=== PATIENT | male | born 1950 | race Caucasian/White ===

== ENCOUNTER 2017-02-22 15:46 | Emergency (ER) | payer BC, MEDICARE ==
--- NOTE | ~2017-02-22 | US85 ---
[facility] A Service [facility] RADIOLOGY TEXT RESULTS PATIENT: MEENA GUIDRY LOCATION: SED : 49 UNIT #: [id number] AGE: [address]: Joslyn Santiago MD SEX: M ORDER DR: [id number] [place] [id number] E MR#: [id number] Acc #: [id number] NAME: MEENA GUIDRY : 1950 SEX: M STUDY DATE/TIME: 02/22/2017 15:59 UNIT: SED ROOM: STUDY DESCRIPTION: [facility] or [facility] Attending Physician: Joslyn Santiago M.D. Referring Physician: Luis Yoon M.D. Ordering Physician: Joslyn Santiago M.D. Primary Care Physician: Luis Yoon M.D. MEDICAL IMAGING REPORT This report is preliminary unless electronic signature is present. EXAM Right lower extremity venous duplex 02/22/2017 HISTORY Right lower extremity pain, swelling and heat for 2 weeks. Evaluate for deep vein thrombosis. TECHNIQUE Venous ultrasound examination of the right lower extremity was performed using grayscale, spectral Doppler and color flow Doppler imaging. FINDINGS The examination is negative. There is no evidence of right lower extremity deep venous thrombus from the groin to the lower calf. Visualized greater saphenous vein is also patent. IMPRESSION Negative examination. No evidence of right lower extremity deep venous thrombosis. Dictated by... Cheko Garay M.D. THIS IS AN ELECTRONICALLY VERIFIED REPORT Cheko Garay M.D. at 02/23/2017 2:11 PM KRT/holly TD: 02/22/2017 20:50 JOB #: [id number] [facility] A Service [facility] RADIOLOGY TEXT RESULTS PATIENT: MEENA GUIDRY LOCATION: SED : 49 UNIT #: [id number] AGE: [address]: Joslyn Santiago MD SEX: M ORDER DR: MEDICAL IMAGING REPORT Page 1 of 1
[2017-02-22 15:45] LABS: BASOPHIL# 0.2 X10e3 (0-0.3); BASOPHIL% 1.8 % (0-2.5); EOSINOPHIL# 0.3 X10e3 (0-0.7); EOSINOPHIL% 2.3 % (0.0-7.0); HEMATOCRIT 41.2 % (38.0-50.0); HEMOGLOBIN 13.7 gm/dL (13.0-16.0); LYMPHOCYTE# 2.6 X10e3 (1.0-3.5); LYMPHOCYTE% 21.5 % (17.0-45.0); MEAN CELL VOLUME 87.2 FL (83-96); MEAN CORPUSCULAR HEMOGLOBIN 28.9 PG (28-34); MEAN CORPUSCULAR HGB CONC 33.1 g/dL (30-36); MEAN PLATELET VOLUME 8.1 FL (6.5-11.5); MONOCYTE% 8.4 % (3.0-12.0); PLATELET COUNT 144 X10e3 (140-420); RED BLOOD COUNT 4.73 X10e (3.90-5.60); RED CELL DISTRIBUTION WIDTH 13.8 % (11.0-15.5); WHITE BLOOD COUNT 12.1 X10e3 (4.0-10.5)
[~2017-02-22 15:46] MED LIST: DYRENIUM50 MG PO; LOVASTATIN20 M1 PO; PERCOCET5/325 PO; PROTONIX PO; THIAMINE HCL100 M1 PO; TRIAMTERENE-HC1 EAC1 PO; TRIAMTERENE/HCTZ; VITAMIN E400 UNI4 PO; VOLTAREN75 MG PO
[2017-02-22 15:58] LABS: DIFF IND NO
[2017-02-22 16:00] LABS: INR 1.3; PROTHROMBIN TIME (PATIENT) 14.2 SECONDS (9.5-12.4)
[2017-02-22 16:08] LABS: ALBUMIN SERUM 3.5 g/dL (3.5-5.0); BILIRUBIN, DIRECT 0.2 mg/dL (0.0-0.2); BILIRUBIN,INDIRECT 0.3 mg/dL (0.0-0.9); BILIRUBIN,TOTAL 0.5 mg/dL (0.2-2.0); BUN/CREATININE RATIO 11.25; CALCIUM SERUM 8.9 mg/dL (8.4-10.2); CREATININE SERUM 0.8 mg/dL (0.6-1.4); GLOM FILT RATE Estimated 92.5 mL/min (>60); PARTIAL THROMBOPLASTIN TIME 30.5 SECONDS (25.6-38.1); POTASSIUM 3.5 mmol/L (3.5-5.1); PROTEIN TOTAL SERUM 7.5 g/dL (6.0-8.3)
== END 2017-02-22 16:54 | disposition home or self-care (01) ==
LOC: SED 15:46
PROVIDERS: Emergency Medicine
DX: L03.115 Cellulitis of right lower limb (principal); I10 Essential (primary) hypertension; E78.00 Pure hypercholesterolemia, unspecified; M19.90 Unspecified osteoarthritis, unspecified site; Z98.890 Other specified postprocedural states
CPT/HCPCS: 36415; 80048; 80076; 85025; 85610; 85730; 93971; 99284

== ENCOUNTER 2017-03-23 08:55 | Emergency (ER) | payer OTHER, BC | END 2017-03-23 09:00 | disposition home or self-care (01) | LOC: SED 08:55 | DX: Z03.89 Encounter for observation for other suspected diseases and conditions ruled out (principal); E78.5 Hyperlipidemia, unspecified | CPT/HCPCS: 99282 ==

== ENCOUNTER → 2017-03-27 | Outpatient (CLI) | payer OTHER ==
--- NOTE | ~2017-03-27 | US85 ---
[facility] A Service [facility] RADIOLOGY TEXT RESULTS PATIENT: MEENA GUIDRY LOCATION: SNIV : 48 UNIT #: [id number] AGE: [address]: Luis Yoon MD SEX: M ORDER DR: [id number] [address] [id number] O MR#: [id number] Acc #: [id number] NAME: MEENA GUIDRY : 1950 SEX: M STUDY DATE/TIME: 03/27/2017 13:31 UNIT: SNIV ROOM: STUDY DESCRIPTION: [facility] or [facility] Attending Physician: Luis Yoon M.D. Referring Physician: Luis Yoon M.D. Ordering Physician: Luis Yoon M.D. Primary Care Physician: Luis Yoon M.D. MEDICAL IMAGING REPORT This report is preliminary unless electronic signature is present. EXAM Right lower extremity venous duplex. DATE OF EXAM 03/27/2017 HISTORY Right lower extremity pain and swelling for 6-weeks. Right knee replacement, 01/15/2017. Evaluate for deep vein thrombosis. TECHNIQUE Venous ultrasound examination of the right lower extremity was performed using grayscale, spectral Doppler and color flow Doppler imaging. FINDINGS The examination is negative. There is no evidence of right lower extremity deep venous thrombus from the groin to the lower calf. Visualized greater saphenous vein is also patent. IMPRESSION Negative examination. No evidence of right lower extremity DVT. Dictated by... Cheko Garay M.D. THIS IS AN ELECTRONICALLY VERIFIED REPORT Cheko Garay M.D. at 03/28/2017 7:47 AM JOSSELINE/disha [facility] A Service [facility] RADIOLOGY TEXT RESULTS PATIENT: MEENA GUIDRY LOCATION: SNIV : 49 UNIT #: [id number] AGE: [address]: Luis Yoon MD SEX: M ORDER DR: TD: 03/27/2017 15:42 JOB #: [id number] MEDICAL IMAGING REPORT Page 1 of 1
== END | disposition home or self-care (01) ==
LOC: SNIV 13:10
DX: M25.561 Pain in right knee (principal); M25.461 Effusion, right knee; M79.89 Other specified soft tissue disorders; Z96.651 Presence of right artificial knee joint
CPT/HCPCS: 93971